=== PATIENT | male | born 1985 | race Caucasian/White ===

== ENCOUNTER 2016-04-29 10:11 | Emergency (ER) | payer SELFPAY ==
[2016-04-29 10:19] VITALS: BP 134/78
--- OUTSIDE RECORDS SUMMARY | 2016-04-29 10:43 | XMS REPORT | Continuity of Care Document ---
:1985 Author Organization [facility] ([facility]) Address [address] [place] [address] Phone [phone] Care Team Providers Name Role Phone Eliseo Blanc Primary Care Provider [phone] Source Comments This disclosure is being made pursuant to the Care Everywhere program, applicable federal and state laws, and may not contain all informaitonavailable regarding this patient.[facility] (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 Ankle pain 03/20/2013 Social History Tobacco Use Types Packs/Day Years Used Date Never Smoker Smokeless Tobacco: Never Used Alcohol Use Drinks/Week oz/Week Comments No Last Filed Vital Signs Vital Sign Reading Time Taken Blood Pressure 136/82 12/21/2013 12:00 PM CDT Pulse 77 12/21/2013 12:00 PM CDT Temperature 36.8 C (98.2 F) 12/21/2013 12:00 PM CDT Respiratory Rate 16 12/21/2013 2:28 PM CDT Height 1.702 m (5' 7") 12/19/2013 4:46 PM CDT Weight 76.658 kg (169 lb) 12/19/2013 4:46 PM CDT Body Mass Index 26.46 12/19/2013 4:46 PM CDT Oxygen Saturation 95% 12/21/2013 12:00 PM CDT Plan of Care Health Maintenance Due Date Last Done Comments Hepatitis B Vaccine (1 of 3 - Primary Series) 1985 Tdap Vaccine 06/26/1994 Lipid Disorder Screening 06/26/2001 MMR Vaccine 06/26/2001 Td Vaccine 06/26/2001 Varicella Vaccine (1 of 2 - Adult - No Evidence of 06/26/2001 Immunity) Influenza Vaccine: Seasonal (#1) 09/30/2015 Results from Last 3 Months Not on file
--- NOTE | 2016-04-29 10:54 | ERNOTE ---
Medical Problem HPI - Narrative Date of Service: 04/29/16 - General Chief Complaint: Flu Symptoms Time Seen by Provider: 04/29/16 10:30 Source: patient Exam Limitations: no limitations - Immun/Allergies/Home Medications Immunizations: IMMUNIZATION HX Immunizations Up to Date Yes History of Influenza Vaccine No Hx Pneumococcal Vaccination No Allergies/Adverse Reactions: Allergies Penicillins Allergy (Verified 04/29/16 10:19) acetaminophen [From Vicodin] Adverse Reaction (Verified 04/29/16 10:19) hydrocodone bitartrate [From Vicodin] Adverse Reaction (Verified 04/29/16 10:19) Home Medications: HOME MEDICATIONS NK [No Home Medication] 10/28/13 [Last Taken Unknown] - History of Present History Narrative: Pt. comes in with c/o cough, sinus congestion, fever, malaise and myalgia for three days. Pt. states that he took Ibuprofen, vicks and mila seltzer for the symptoms with minimal relief but has been going to work and this worsens the symptoms throughout the day. Pt. denies any SOB, CP, nausea and vomiting, but pt. does have diarrhea. Review of Systems - Review of Systems Constitutional: Present: fever, chills, diaphoresis, fatigue, malaise EYE: Present: no symptoms reported ENT: Present: nose congestion, sore throat. Absent: nasal drainage Respiratory: Present: cough. Absent: shortness of breath, wheezing Cardiology: Present: no symptoms reported. Absent: chest pain, palpitations, edema Gastrointestinal/Abdominal: Present: diarrhea. Absent: nausea, vomiting, abdominal pain Musculoskeletal: Present: muscle pain - generalized. Absent: neck pain, joint pain Skin: Present: no symptoms reported. Absent: rash, change in color Neurological: Present: no symptoms reported. Absent: headache, dizziness/light- headedness, numbness, tingling All Other Systems: All systems neg except as marked - Patient's Past Medical History Patient History - Medical: No pertinent hx Patient History - Cardiac/Respiratory: Bronchitis Patient History - Cancer: No Hx of Cancer Patient History - Surgical Procedures: Other Patient History - Other: None - Social History Living Situations: home Abuse History: No History of abuse Psych History: No pertinent hx Smoking Status: Never smoker Alcohol Use: none Drug Use: none - Immunizations Immunizations Up to Date: Yes Hx Pneumococcal Vaccination: No History of Influenza Vaccine: No Physical Exam - Physical Exam General Appearance: Present: wd/wn, alert, no apparent distress Eye Exam: Normal inspection: bilateral, PERRL: bilateral, EOMI: bilateral Ears, Nose, Throat: Present: hearing grossly normal, nasal congestion, pharyngeal erythema. Absent: abnormal TM (R), abnormal TM (L), pharyngeal swelling, tonsillar exudate Neck: Present: normal inspection, nontender. Absent: lymphadenopathy (R), lymphadenopathy (L) Respiratory: Present: no respiratory distress, normal breath sounds, no accessory muscle use, chest nontender, lungs clear Cardiovascular/Chest: Present: regular rate, rhythm, no murmur, normal peripheral pulses Gastrointestinal/Abdominal: Present: normal bowel sounds, nontender, nondistended, soft, no organomegaly Back Exam: Present: normal inspection, normal range of motion, no CVA tenderness , no vertebral tenderness Extremity Exam: Present: normal inspection, non-tender, no edema, normal range of motion Neurological Exam: Present: alert, oriented, normal mood/affect, no motor/ sensory deficits Skin Exam: Present: warm/dry, pallor. Absent: skin rash ED Progress - Results and Orders Patient's Lab Results:: I have reviewed the patient's lab results. - Vital Signs Patient's Vital Signs:: I have reviewed the patient's vital signs. Vital Signs: Vital Signs 04/29/16 10:16 Temperature 36.6 C Pulse Rate 86 Respiratory 16 Rate Blood Pressure 134/78 O2 Sat by Pulse 96 Oximetry - Progress/Reassessment Chief Complaint: Flu Symptoms Departure - Departure Clinical Impression: Upper respiratory infection Qualifiers: URI type: unspecified viral URI Qualified Code(s): J06.9 - Acute upper respiratory infection, unspecified; B97.89 - Other viral agents as the cause of diseases classified elsewhere Disposition: Home self-care Condition: Good Instructions: Upper Respiratory Infection, Adult, [id number], Form - Excuse from Work, School, or Physical Activity Additional Instructions: Please follow up with primary provider in 2-3 days. Increase fluid intake, keep taking medications as you have been and rest until fever free for 24 hours. Referrals: Eliseo Blanc DO [Primary Care Provider] -
== END 2016-04-29 10:59 | disposition home or self-care (01) ==
LOC: ER 10:11
DX: B97.89 Other viral agents as the cause of diseases classified elsewhere (principal)

== ENCOUNTER 2016-10-02 19:20 | Emergency (ER) | payer SELFPAY ==
[2016-10-02] MEDS ORDERED: NORMAL SALINE 1,000 ML IV ONE (19:40)
--- NOTE | 2016-10-02 19:45 | ERNOTE ---
Dizziness ER Record Date of Service: 10/02/16 Presenting Symptoms: dizziness, weakness, other - fatigue Time Seen by Provider: 10/02/16 19:35 Source: patient Exam Limitations: no limitations Immunizations: IMMUNIZATION HX Immunizations Up to Date Yes History of Influenza Vaccine Yes Hx Pneumococcal Vaccination Yes Allergies/Adverse Reactions: Allergies Allergy/AdvReac Type Severity Reaction Status Date / Time Penicillins Allergy Verified 10/02/16 19:32 acetaminophen [From Vicodin] AdvReac Verified 10/02/16 19:32 hydrocodone bitartrate AdvReac Verified 10/02/16 19:32 [From Vicodin] Home Medications: HOME MEDICATIONS NK [No Home Medication] 10/28/13 [Last Taken Unknown] - History of Present Illness Narrative: Pt. comes in with c/o dizziness, weakness, fatigue and aid reflux since yesterday approximately 24 hours ago. Pt. denies any SOB, CP, NVD, fever, recent illness but states that when he was at work last night he began to develop the symptoms and took some maalox and ate and the reflux resolved but states taht it returned today. Pt. denies any exacerbating symptoms. Review of Systems - Review of Systems Constitutional: Present: weakness, fatigue, malaise. Absent: recent illness, fever, chills, weight loss EYE: Present: no symptoms reported ENT: Present: no symptoms reported Respiratory: Present: no symptoms reported. Absent: shortness of breath, cough , wheezing Cardiology: Present: no symptoms reported. Absent: chest pain, palpitations, edema Gastrointestinal/Abdominal: Present: other - reflux of acid into oralpharynx. Absent: nausea, vomiting, diarrhea, abdominal pain Genitourinary: Present: no symptoms reported Musculoskeletal: Present: no symptoms reported. Absent: back pain, joint pain Skin: Present: no symptoms reported. Absent: rash, change in color Neurological: Present: no symptoms reported. Absent: headache, dizziness/light- headedness, numbness, tingling All Other Systems: All systems neg except as marked - Patient's Past Medical History Patient History - Medical: No pertinent hx Patient History - Cardiac/Respiratory: Bronchitis Patient History - Cancer: No Hx of Cancer Patient History - Surgical Procedures: Other Patient History - Other: None - Social History Living Situations: home Abuse History: No History of abuse Psych History: No pertinent hx Smoking Status: Never smoker Alcohol Use: none Drug Use: none - Immunizations Immunizations Up to Date: Yes Hx Pneumococcal Vaccination: Yes History of Influenza Vaccine: Yes Physical Exam - Physical Exam General Appearance: Present: wd/wn, alert, no apparent distress Head Exam: Present: normal inspection, no evidence of injury Eye Exam: Normal inspection: bilateral, PERRL: bilateral, EOMI: bilateral Ears, Nose, Throat: Present: normal except -, normal pharynx, dry mucous membranes Neck: Present: normal inspection, nontender. Absent: lymphadenopathy (R), lymphadenopathy (L) Respiratory: Present: no respiratory distress, normal breath sounds, no accessory muscle use, chest nontender, lungs clear Cardiovascular/Chest: Present: regular rate, rhythm, no murmur, normal peripheral pulses Gastrointestinal/Abdominal: Present: normal bowel sounds, nontender, nondistended, soft, no organomegaly Back Exam: Present: normal inspection, normal range of motion, no CVA tenderness , no vertebral tenderness Extremity Exam: Present: normal inspection, non-tender, normal range of motion, no edema Neurological Exam: Present: alert, oriented, normal mood/affect, no motor/ sensory deficits Skin Exam: Present: warm/dry, pallor ED Progress - Results and Orders Patient's Lab Results:: I have reviewed the patient's lab results. - Vital Signs Patient's Vital Signs:: I have reviewed the patient's vital signs. Vital Signs: Vital Signs 10/02/16 19:24 Temperature 36.2 C L Pulse Rate 86 Respiratory 16 Rate Blood Pressure 133/95 O2 Sat by Pulse 98 Oximetry - EKG EKG: NSR EKG read: Reviewed by me EKG Comments: interp by dr mo - Progress/Reassessment Chief Complaint: Dizziness Progress:: Improved Departure Clinical Impression: Dehydration Allergic rhinitis Qualifiers: Chronicity: chronic Allergic rhinitis trigger: unspecified Allergic rhinitis seasonality: non-seasonal Qualified Code(s): J30.89 - Other allergic rhinitis - Departure Disposition: Home self-care Condition: Good Instructions: Allergic Rhinitis, Dehydration, Adult, [id number], Form - Excuse from Work, School, or Physical Activity Additional Instructions: Please increase fluid intake and take Claritin 1 tablet daily prior to going to work. Referrals: Eliseo Blanc DO [Primary Care Provider] -
[2016-10-02 19:56] LABS: Hematocrit 45.1 % (42.0-52.0); Hemoglobin 15.7 gm/dL (13.5-18.0); Mean Cell Volume 81.7 fl (78-100); Mean Corpuscular Hemoglobin 28.4 pg (27-31); Mean Corpuscular Hgb Conc 34.8 g/dl (32-36); Neutrophil # 2.9 K/mm3 (1.3-6.0); Neutrophil % 46.9 % (42-75.0); Platelet Count 365 K/mm3 (150-450); Red Blood Count 5.52 M/mm3 (4.7-6.0); White Blood Count 6.2 K/mm3 (4.0-10.5)
[2016-10-02 20:15] LABS: ALT 63 U/L (19-67); AST 25 U/L (0-48); Alkaline Phosphatase * 66 U/L (50-170); Anion Gap 16.2 mmol/L (6.8-13.8); BUN/Creatinine Ratio 10.8 (9.0-21.6); Blood Urea Nitrogen 11 mg/dL (6-23); Ca. Corrected For Albumin 8.9 mg/dL (8.4-10.2); Calcium * 9.2 mg/dL (7.9-10.9); Carbon Dioxide 24.3 mmol/L (24-32.6); Chloride 103 mmol/L (97-106); Glucose * 106 mg/dL (70-110); Potassium 3.5 mmol/L (3.4-4.6); Sodium 140 mmol/L (132-142); Total Protein 7.6 gm/dL (6.2-8.2); Troponin I Less than 0.017 ng/ml (0.00-0.10)
[2016-10-02 20:27] LABS: Urine Appearance Clear; Urine Bacteria None Seen; Urine Bilirubin Negative (NEGATIVE); Urine Blood Negative /ul (NEGATIVE); Urine Color Yellow; Urine Ketone Negative (NEGATIVE); Urine Nitrite Negative (NEGATIVE); Urine Protein Negative (NEGATIVE); Urine RBC None Seen /hpf (0-5); Urine Urobilinogen Normal (NORMAL); Urine WBC 0-5 /hpf (0-5)
[2016-10-02 21:17] VITALS: BP 126/69
== END 2016-10-02 21:15 | disposition home or self-care (01) ==
LOC: ER 19:20
DX: E86.0 Dehydration (principal); J30.89 Other allergic rhinitis